=== PATIENT | male | born 1965 | race Caucasian/White ===

== ENCOUNTER 2016-11-04 22:13 | Emergency (ER) | payer OTHER | END 2016-11-05 03:46 | disposition home or self-care (01) | LOC: FER 22:13 | DX: M54.2 Cervicalgia (principal); M54.5 Low back pain; R20.2 Paresthesia of skin; I51.9 Heart disease, unspecified; E11.9 Type 2 diabetes mellitus without complications; Z85.038 Personal history of other malignant neoplasm of large intestine; Z91.040 Latex allergy status; V49.60XA Unspecified car occupant injured in collision with unspecified motor vehicles in traffic accident, initial encounter; Y92.410 Unspecified street and highway as the place of occurrence of the external cause | CPT/HCPCS: 70450; 71010; J1885 ==